=== PATIENT | female | born 1995 | race Caucasian/White ===

== ENCOUNTER → 2017-02-19 | Outpatient (CLI) | payer BC ==
--- NOTE | 2017-02-19 16:05 | DIAGNOSTIC IMAGING REPORT ---
LEFT ANKLE MIN 3 VIEWS ROUTINE CLINICAL HISTORY: Left ankle injury. COMPARISON: None FINDINGS: There is subtle cortical irregularity of the medial malleolus. No additional osseous abnormalities are identified on this exam. Talar dome is intact. There is no ankle mortise widening. IMPRESSION: Subtle cortical irregularity of the medial malleolus which suggests a mild age indeterminate avulsion injury. Electronically signed by: Milo Serra M.D. 02/19/2017 4:04 PM Dictated Date/Time: 02/19/2017 4:03 PM
== END | disposition home or self-care (01) ==
LOC: C.RAD 15:39
PROVIDERS: ATTEND Family Medicine
DX: S99.912A Unspecified injury of left ankle, initial encounter (principal); X58.XXXA Exposure to other specified factors, initial encounter